=== PATIENT | male | born 1990 | race Caucasian/White ===

== ENCOUNTER 2017-02-19 09:38 | Emergency (ER) | payer OTHER ==
[~2017-02-19] VITALS: Ht 172.7 cm; Wt 65.8 kg
[~2017-02-19 09:38] MED LIST: HUMALOG100 U/ML; HUMULIN 70/30 V10 ML SUBQ; HUMULIN 70100 UNIT/1 SQ; HUMULIN 70100 UNIT/1 SUBQ; LANTUS100 U/M1 SQ; LANTUS100 U/ML; LEVOXYL0.137 MG; LEVOXYL75 MCG PO; NOVOLOG100 U/M1
== END 2017-02-19 10:45 | disposition home or self-care (01) ==
LOC: CED 09:38
DX: S05.02XA Injury of conjunctiva and corneal abrasion without foreign body, left eye, initial encounter (principal); E10.9 Type 1 diabetes mellitus without complications; Z88.8 Allergy status to other drugs, medicaments and biological substances; Z88.0 Allergy status to penicillin; Z79.4 Long term (current) use of insulin; Z79.899 Other long term (current) drug therapy; W45.8XXA Other foreign body or object entering through skin, initial encounter; W25.XXXA Contact with sharp glass, initial encounter; Y92.009 Unspecified place in unspecified non-institutional (private) residence as the place of occurrence of the external cause
CPT/HCPCS: 90471; 90715; 99283

== ENCOUNTER 2017-02-25 10:16 | Emergency (ER) | payer OTHER ==
[~2017-02-25] VITALS: Ht 172.7 cm; Wt 65.8 kg
== END 2017-02-25 11:58 | disposition left against medical advice (07) ==
LOC: CED 10:16
DX: Z53.21 Procedure and treatment not carried out due to patient leaving prior to being seen by health care provider (principal)